=== PATIENT | female | born 1975 | race Caucasian/White ===

== ENCOUNTER 2017-04-24 11:05 | Day surgery (SDC) | payer BC, OTHER ==
[2017-04-19 12:48] VITALS: BMI 36.6
[~2017-04-24 11:05] MED LIST: oxyCODONE HCL 10 MG SUSTAINED ACTING TABLET PO ONE
[2017-04-24] MEDS ORDERED: LIDOCAINE 1%/EPI 1:100000 (20 ML MULTI DOSE VIAL) ONE (11:34)
[2017-04-24] MEDS ORDERED: methylPREDNISolone ACET (DEPO) 40 MG/1 ML VIAL ONE (11:34)
[2017-04-24] MEDS ORDERED: THROMBIN (BOVINE) 5,000 UNIT VIAL TP ONE (11:34)
[2017-04-24] MEDS ORDERED: DEXAMETHASONE SOD PHOSPHATE/PF 10 MG/ML SDV ONE (12:11)
[2017-04-24] MEDS ORDERED: MIDAZOLAM HCL 2 MG/2 ML SINGLE DOSE VIAL ONE (12:11)
[2017-04-24] MEDS ORDERED: BUPIVACAINE HCL/PF (5 MG/ML) 30 ML VIAL IJ ONE (12:12)
--- NOTE | 2017-04-24 12:53 | HP ---
History & Physical Update - History History: No Change - Physical Physical: No Change - Assessment Assessment: No Change - Plan Plan: No Change
[2017-04-24] MEDS ORDERED: DEXAMETHASONE SOD PHOSPHATE 4 MG/1 ML VIAL ONE (13:15)
[2017-04-24] MEDS ORDERED: ONDANSETRON 4 MG/2 ML VIAL ONE (13:15)
[2017-04-24] MEDS ORDERED: ceFAZolin SODIUM 1 GM VIAL ONE (13:15)
[2017-04-24] MEDS ORDERED: oxyCODONE HCL 5 MG TABLET PO PRN (14:20)
[2017-04-24] MEDS ORDERED: ONDANSETRON 4 MG/2 ML VIAL IVPUSH PRN (14:20)
[2017-04-24] MEDS ORDERED: LACTATED RINGERS SOLUTION 1,000 ML IV SCH (14:30)
[2017-04-24] MEDS ORDERED: LIDOCAINE HCL 1%, 10 MG/ML (20ML VIAL) ONE (14:32)
--- NOTE | 2017-04-24 15:00 | OP ---
Operative Note - Note: Operative Date: 04/24/17 Pre-Operative Diagnosis: lumbar stensis, herniated disc Operation: Laminectomy of L5-S1 with micordisectomy Surgeon: Rico Christianson Textile Engraver: Marisol Yu Anesthesiologist/TYPISTS SUPERVISOR: Sarah Alvarez Anesthesia: Spinal Specimens Removed: L5-S1 disc Estimated Blood Loss (mls): 20 Fluid Volume Replaced (mls): 1,000 Operative Report Dictated: Yes
--- NOTE | 2017-04-24 15:02 | SURG ---
Surgery Mill Attendant Note Mill Attendant: Marisol Yu PA-C Date of Service: 04/24/17 Diagnosis: spinal stenosis, herniated disc Procedure: laminectomy of L5-S1 with microdisectomyu I was present for the entirety of the operative procedure. For further detail, please refer to operative report. Visit type - Case Type Case Type: Scheduled Admission - Emergency Emergency Visit: No - New patient This patient is new to me today: Yes Date on this admission: 04/24/17
[2017-04-24 16:22] VITALS: PULSE 84; TEMP 98.4
[2017-04-24] MEDS ORDERED: oxyCODONE HCL 5 MG TABLET ONE (16:48)
[2017-04-24 17:44] VITALS: BP 98/52
--- NOTE | 2017-04-25 07:35 | OP ---
DATE OF OPERATION: 04/25/2017 PREOPERATIVE DIAGNOSIS: Spinal stenosis, L5-S1 POSTOPERATIVE DIAGNOSIS: Spinal stenosis, L5-S1. PROCEDURE PERFORMED: Laminectomy, L5-S1. SURGEON: Rico Christianson MD LIME KILN AND RECAUSTICIZING OPERATOR: SEVERO Borjas ESTIMATED BLOOD LOSS: 50 mL. INTRAVENOUS FLUIDS: Per Anesthesia. COMPLICATIONS: There were none. ANESTHESIA: Spinal with a TLIP block. INDICATIONS FOR SURGERY: The patient is a 42-year-old female who has been suffering from pain from her back down his legs. X-rays and MRI were completed, which noted that she had spinal stenosis at L5-S1 secondary to a herniated disc. She had gone through an exhaustive course of treatment for this which included medications, physical therapy, as well as injections. Unfortunately, her pain continued to persist despite all this. At this point, risks, benefits, and alternatives were discussed, and the patient consented to surgery. OPERATIVE NOTE: Patient was brought to the operating room by the anesthesia staff. After appropriate patient identification was performed and spinal anesthesia was given, appropriate anesthetic lines were placed, a TLIP block was also given. The patient was able to position herself prone onto the Grant frame with all areas of bony prominences well-padded at this time. Two needles were placed into the back to valeriano off the L5-S1 level. An x-ray was taken to confirm the needles track. The needle was removed, and 10 mL of lidocaine with epinephrine was injected into her back at this time. Her back was prepped and draped in a sterile manner. At this point, a time-out was completed. An incision was made from the top of L5 down to the bottom of S1. Dissection was carried down to the fascia. Fascia was split open at this time. An appropriate retractor was then placed, and a spinal needle was placed onto the L5 lamina to valeriano off the L5-S1 level. An x-ray was taken to confirm this was correct. The needle was removed, and the microscope was brought in. At this point, the interspinous ligament at L5-S1 was removed. Portions of the L5 and S1 spinous processes were removed. Portions of the lamina were removed. The segment was removed. A complete decompression was performed such that the S1 nerve root was free. At this point, the nerve root was mobilized medially, and the disc herniation was noted. It was removed at this time. By the end of the procedure, the S1 nerve root appeared to be well decompressed. All bleedings were controlled at this time. Steroids were placed over the nerve root. Floseal was placed over that. The fascia was closed with a No. 1 Vicryl suture. The subcutaneous tissues were closed with 2-0 Vicryl suture. Skin was closed with 3-0 Monocryl suture. Dermabond was applied. Steri-Strips were applied, and sterile dressings applied. Patient was placed supine on the OR bed and brought to the PACU in stable condition. Eleanor BILLS/[id number] MTDD
--- NOTE | 2017-04-27 13:12 | PATH ---
Surgical Pathology Report Patient Name: MARK GASPAR [facility]. Rec. #: [id number] /Age/Gender: 1975 (Age: 42) / F Account: [id number] Location: COUNTS INCLUDE 234 BEDS AT THE [facility] AM[facility]UL[facility] Taken: 04/24/2017 Received: 04/24/2017 Reported: 04/27/2017 Physicians: Rico Christianson M.D. Specimen(s) Received L5-S1 DISCS Clinical History Spinal stenosis Final Diagnosis L5-S1 DISC, LAMINECTOMY: CARTILAGE WITH DEGENERATIVE CHANGES. Electronically Signed Princess Royal M.D. Gross Description Received in formalin labeled "L5-S1 disc," is a 2.3 x 2.1 x 0.3 cm aggregate of powell fragments of fibrocartilaginous tissue. The specimen is entirely submitted in one cassette. 04/25/201704/25/2017
== END 2017-04-24 17:40 | disposition home or self-care (01) ==
LOC: FASU 11:05
PROVIDERS: ATTEND Orthopaedic Surgery Orthopaedic Surgery of the Spine
PROC: 01NB0ZZ Release Lumbar Nerve, Open Approach (ICD-10-PCS; principal; 2017-04-24 13:39)
DX: M48.07 Spinal stenosis, lumbosacral region (principal)
CPT/HCPCS: 84703; 88304-TC; 94760

== ENCOUNTER 2017-05-23 01:24 | Inpatient (IN) | payer BC ==
--- NOTE | 2017-05-23 01:56 | PDOC ---
History of Present Illness - General Stated Complaint: HEADACHE Time Seen by Provider: 05/23/17 01:49 - History of Present Illness Initial Comments: 05/23/17 01:58 42 yo F with L5-S1 Laminectomy ( 04/21/17) who presents with RUST. Patient reports acute onset RUST this past Monday (05/19/17). RUST initially post with radiation to front of head. RUST now sharp, frontal, unremitting. States that RUST is dif. than previous migraines in past. Denies photophobia, phonophobia, aura. Endorses 4 episodes of non biliayr, non bloody emesis in last 24 hours. Also reports lower back pain and rapid swelling at previous incision site from laminectomy (05/21/17) .Denies saddle parasthesisa, urinary incontinence, ext. sensory change, weakness, F/C. Reports that she is scheduled to see Dr. Ernie Parisi at 11 AM ( 05/23/17) for f/u management of laminectomy. Pt. prescribed tramadol and perocet, but denies use. Denies CP, SOB, abdominal pain, urinary complaints, lightheadedness, weakness. Past History - Past Medical History Allergies/Adverse Reactions: Allergies Allergy/AdvReac Type Severity Reaction Status Date / Time latex Allergy Intermediate Hives Verified 05/23/17 01:58 Home Medications: Ambulatory Orders Oxycodone HCl/Acetaminophen [Percocet 5-325 mg Tablet] 1 tab PO Q6H PRN #20 tablet MDD 4 04/24/17 traMADol HCL [Ultram] 50 mg PO Q6H #30 tablet MDD 4 04/24/17 Anemia: No Asthma: No Cancer: No Cardiac Disorders: No CVA: No COPD: No CHF: No Dementia: No Diabetes: No GI Disorders: No Disorders: No HTN: No Hypercholesterolemia: No Liver Disease: No Seizures: No Thyroid Disease: No - Surgical History Abdominal Surgery: No Appendectomy: No Cardiac Surgery: No Cholecystectomy: No Lung Surgery: No Neurologic Surgery: No Orthopedic Surgery: No - Suicide/Smoking/Psychosocial Hx Smoking History: Never smoked Have you smoked in the past 12 months: No Hx Alcohol Use: No Drug/Substance Use Hx: No Substance Use Type: None Hx Substance Use Treatment: No Review of Systems - Review of Systems Comments:: 05/23/17 01:54 GENERAL/CONSTITUTIONAL: No fever or chills. No weakness. HEAD, EYES, EARS, NOSE AND THROAT: No change in vision. No ear pain or discharge. No sore throat.- CARDIOVASCULAR: No chest pain or shortness of breath RESPIRATORY: No cough, wheezing, or hemoptysis. GASTROINTESTINAL: No nausea, vomiting, diarrhea or constipation. GENITOURINARY: No dysuria, frequency, or change in urination. MUSCULOSKELETAL: No joint or muscle swelling or pain. No neck or back pain. SKIN: No rash NEUROLOGIC: No headache, vertigo, loss of consciousness, or change in strength/ sensation. ENDOCRINE: No increased thirst. No abnormal weight change HEMATOLOGIC/LYMPHATIC: No anemia, easy bleeding, or history of blood clots. ALLERGIC/IMMUNOLOGIC: No hives or skin allergy. *Physical Exam - Physical Exam Comments: 05/23/17 01:56 GENERAL: Awake, alert, and fully oriented, in no acute distress HEAD: No signs of trauma, normocephalic, atraumatic EYES: PERRLA, EOMI, sclera anicteric, conjunctiva clear ENT: Hearing grossly normal, nares patent, oropharynx clear without exudates. Moist mucosa NECK: Normal ROM, supple, no lymphadenopathy, JVD, or masses LUNGS: No distress, speaks full sentences, clear to auscultation bilaterally HEART: Regular rate and rhythm, normal S1 and S2, no murmurs, rubs or gallops, peripheral pulses normal and equal bilaterally. EXTREMITIES : Normal inspection, Normal range of motion, no edema. No clubbing or cyanosis. NEUROLOGICAL: Cranial nerves II through XII grossly intact. Normal speech, normal gait, no focal sensorimotor deficits. Back: 6 x 6 cm firm, non fluctuant, induration. Absent erythema, ttp, or overlying skin changes. No active drainage. SKIN: Warm, Dry, normal turgor, no rashes or lesions noted ED Treatment Course - LABORATORY CBC & Chemistry Diagram: 05/24/17 07:24 05/24/17 07:24 Medical Decision Making - Medical Decision Making 05/23/17 02:47 42 yo F with L5-S1 Laminectomy ( 04/21/17) who presents with reports acute onset RUST this past Monday (05/19/17). RUST initially posterior with radiation to front of head. RUST now sharp, frontal, unremitting. States that RUST is dif. than previous migraines in past. Denies photophobia, phonophobia, aura. Endorses 4 episodes of non biliary, non bloody emesis in last 24 hours. Also reports lower back pain and rapid swelling at previous incision site from laminectomy () .Denies saddle parasthesisa, urinary incontinence, ext. sensory change, weakness, F/C. Reports that she is scheduled to see Dr. Rico Christianson at 11 AM ( 05/23/17) for f/u management of laminectomy. Pt. prescribed tramadol and perocet , but denies use. Denies CP, SOB, abdominal pain, urinary complaints, lightheadedness, weakness. Hemodynamically stable and physical exam noteable for 6 x 6 cm firm, non fluctuant, induration. Absent erythema, ttp, or overlying skin changes. No active drainage. Lower back induration most likely post op seroma vs. epidural asbsces. Although low suspicion, will also consider CSF leak given RUST, and back pain, in setting of recent surgery. ED Course: 05/23/17 02:53 CBC, CMP, ESR, CRP UA HCG Tylenol, NS, Reglan 05/23/17 03:[address] Gómez answering service [phone]. Cell phone out of service [phone] 05/23/17 03:46 WBC: 10.8, CRP 0.7 05/23/17 04:36 CT HEAD: No acute pathology. CT L-SPINE: 5.7 x 5.5 x 4.1 simple fluid collection L4-L5, which may extend into L5 laminectomy site. Postoperative seroma. Pt. signed out to Dr. Saha. *DC/Admit/Observation/Transfer Diagnosis at time of Disposition: Seroma after procedure - Discharge Dispostion Condition at time of disposition: Stable Admit: No - Referrals - Patient Instructions - Post Discharge Activity - Attestations Physician Attestion: 05/23/17 01:56 I attest to the information provided in this note.
[2017-05-23 02:07] VITALS: BMI 37.8
[2017-05-23] MEDS ORDERED: SODIUM CHLORIDE 1,000 ML IV STA (02:17)
[2017-05-23] MEDS ORDERED: morphine CARPU-JECT 4 MG/1 ML DISP.SYRIN IVPUSH ONE (02:17)
[2017-05-23] MEDS ORDERED: ONDANSETRON 4 MG/2 ML VIAL IVPUSH ONE (02:17)
[2017-05-23] MEDS ORDERED: METOCLOPRAMIDE HCL INJECTION 10 MG/2 ML VIAL IVPUSH ONE (02:34)
[2017-05-23] MEDS ORDERED: ACETAMINOPHEN 1000 MG/100 ML VIAL (NON FORMULARY) IVPB ONE (02:34)
[2017-05-23] MEDS ORDERED: METOCLOPRAMIDE HCL INJECTION 10 MG/2 ML VIAL ONE (02:41)
[2017-05-23] MEDS ORDERED: ACETAMINOPHEN INJECTION 100 ML IVPB ONE ×2 (02:41→13:11)
[2017-05-23 02:44] LABS: BASO % 0.9 % (0-2.0); EOS % 5.5 % (0-4.5); HEMATOCRIT 38.5 % (32.4-45.2); HEMOGLOBIN 13.1 GM/dL (10.7-15.3); LYMPH % 21.2 % (8-40); MCH 30.9 pg (25.7-33.7); MCHC 33.9 g/dl (32.0-36.0); MEAN PLT VOLUME 8.7 fl (7.5-11.1); MONO % 7.3 % (3.8-10.2); NEUT % 65.1 % (42.8-82.8); PLATELET COUNT 476 K/MM3 (134-434); RBC 4.23 M/mm3 (3.60-5.2); RDW 12.4 % (11.6-15.6); WHITE BLOOD COUNT 10.8 K/mm3 (4.0-10.0)
[2017-05-23 03:09] LABS: ALBUMIN 3.6 g/dl (3.4-5.0); ANION GAP 9 (8-16); BILIRUBIN,TOTAL 0.4 mg/dL (0.2-1.0); BLOOD UREA NITROGEN 14 mg/dL (7-18); CALCIUM 9.3 mg/dL (8.5-10.1); CHLORIDE 103 mmol/L (98-107); CO2 27 mmol/L (21-32); CREATININE 0.7 mg/dL (0.55-1.02); GLUCOSE,RANDOM 144 mg/dL (74-106); INR 1.02 (0.82-1.09); POTASSIUM 4.4 mmol/L (3.5-5.1); PROTHROMBIN TIME (PATIENT) 11.5 SEC (9.98-11.88); SGOT/AST 26 U/L (15-37); SGPT/ALT 61 U/L (12-78); SODIUM 139 mmol/L (136-145); TOT PROT 7.4 g/dl (6.4-8.2)
[2017-05-23 03:10] LABS: ALK PHOS 143 U/L (45-117)
--- NOTE | 2017-05-23 06:02 | PDOC ---
Attending Attestation - Resident Resident Name: Eron Padronson - ED Attending Attestation I have performed the following: I have examined & evaluated the patient, The case was reviewed & discussed with the resident, I agree w/resident's findings & plan, Exceptions are as noted - HPI HPI: 05/23/17 06:01 agree with resident note. AF, no infectious symptoms. lumbar area likely seroma vs. CSF leak. unlikely abscess. RUST likely stress, concern for CSF leak. pain contorl labsl imaging d/w surgeon. - Physicial Exam PE: 05/23/17 06:02 as aboe - Medical Decision Making 05/23/17 06:02 as above
[2017-05-23 08:36] LABS: URINE APPEARANCE CLEAR; URINE BILIRUBIN NEGATIVE (NEGATIVE); URINE BLOOD 1+ (NEGATIVE); URINE COLOR STRAW; URINE GLUCOSE (UA) NEGATIVE (NEGATIVE); URINE KETONE NEGATIVE (NEGATIVE); URINE LEUK ESTERASE TRACE (NEGATIVE); URINE NITRITE NEGATIVE (NEGATIVE); URINE PROTEIN NEGATIVE (NEGATIVE); URINE UROBILINOGEN NEGATIVE mg/dL (0.2-1.0)
[2017-05-23 08:46] LABS: EPI CELLS FEW /HPF (FEW)
[2017-05-23] MEDS ORDERED: ONDANSETRON 4 MG/2 ML VIAL IVPUSH PRN ×2 (09:59→15:28)
[2017-05-23] MEDS ORDERED: morphine CARPU-JECT 2 MG/1 ML DISP.SYRIN IVPUSH PRN (09:59)
--- NOTE | 2017-05-23 09:59 | HP ---
CHIEF COMPLAINT: Headache, neck pain Surgeon: Dr. Juan F Cancino HISTORY OF PRESENT ILLNESS: Review of surgical chart: 42 year-old female with a PMH significant for degenerative disc disease underwent L5S1 laminectomies on April 24, 2017 at [facility] with Dr. Rico Christianson. This surgery was performed as part of their Awake Spinal Surgery Protocol. Surgery was largely uneventful by report , however, there was a possible durotomy during the procedure. The patient made a very good recovery after the surgery and had good resolution of her presenting symptoms. Last Monday, the patient began to note swelling at her incision site and severe headaches with nausea and vomiting. These symptoms did not respond to conservative management efforts. After discussions with Dr. Christianson, patient presented to the [facility] ER for further evaluation and potential revision surgery. Inspection of her back in the ED showed a very well-healed lumbar incision which crossed the rostral aspect of the lumbar tattoo. The re-approximation of her tattoo was excellent. The wound was not warm or draining, however, it was clearly distended with fluid. Patient was neurologically nonfocal but complainws of severe headaches and was clearly in discomfort. She had not eaten all day due to severe nausea. 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 Recent Travel: No PAST MEDICAL HISTORY: Degenerative disc disease PAST SURGICAL HISTORY: L5-S1 laminectomy (04/24/17, [facility]) Social History: Smoking: no Alcohol: no Drugs: no Family History: non-contributory Allergies latex Allergy (Intermediate, Verified 05/23/17 01:58) Hives HOME MEDICATIONS: Home Medications Medication Instructions Recorded Oxycodone HCl/Acetaminophen 1 tab PO Q6H PRN #20 tablet MDD 4 04/24/17 [Percocet 5-325 mg Tablet] traMADol HCL [Ultram] 50 mg PO Q6H #30 tablet MDD 4 04/24/17 REVIEW OF SYSTEMS CONSTITUTIONAL: Absent: fever, chills, diaphoresis, generalized weakness, malaise, loss of appetite, weight change HEENT: Absent: rhinorrhea, nasal congestion, throat pain, throat swelling, difficulty swallowing, mouth swelling, ear pain, eye pain, visual changes CARDIOVASCULAR: Absent: chest pain, syncope, palpitations, irregular heart rate, lightheadedness , peripheral edema RESPIRATORY: Absent: cough, shortness of breath, dyspnea with exertion, orthopnea, wheezing, stridor, hemoptysis GASTROINTESTINAL: Absent: abdominal pain, abdominal distension, nausea, vomiting, diarrhea, constipation, melena, hematochezia GENITOURINARY: Absent: dysuria, frequency, urgency, hesitancy, hematuria, flank pain, genital pain MUSCULOSKELETAL: Absent: myalgia, arthralgia, joint swelling, back pain, neck pain SKIN: Absent: rash, itching, pallor HEMATOLOGIC/IMMUNOLOGIC: Absent: easy bleeding, easy bruising, lymphadenopathy, frequent infections ENDOCRINE: Absent: unexplained weight gain, unexplained weight loss, heat intolerance, cold intolerance NEUROLOGIC: +headaches, neck pain Absent: headache, focal weakness or paresthesias, dizziness, unsteady gait, seizure, mental status changes, bladder or bowel incontinence PSYCHIATRIC: Absent: anxiety, depression, suicidal or homicidal ideation, hallucinations. PHYSICAL EXAMINATION Patient seen and examined post-op on [facility] floor. States neck pain is resolved but still with headache only moderately improved. Vital Signs - 24 hr 05/23/17 05/23/17 01:59 09:32 Temperature 98.4 F 98 F Pulse Rate 93 H Pulse Rate [ 88 Left Radial] Respiratory 18 18 Rate Blood Pressure 126/101 Blood Pressure 97/61 [Right Arm] O2 Sat by Pulse 97 97 Oximetry (%) GENERAL: Awake, alert, and fully oriented, in no acute distress. HEAD: Normal with no signs of trauma. EYES: Pupils equal, round and reactive to light, extraocular movements intact, sclera anicteric, conjunctiva clear. No lid lag. EARS, NOSE, THROAT: Ears normal, nares patent, oropharynx clear without exudates. Moist mucous membranes. NECK: Normal range of motion, supple without lymphadenopathy, JVD, or masses. LUNGS: Breath sounds equal, clear to auscultation bilaterally. No wheezes, and no crackles. No accessory muscle use. HEART: Regular rate and rhythm, normal S1 and S2 without murmur, rub or gallop. ABDOMEN: Soft, nontender, not distended, normoactive bowel sounds, no guarding, no rebound, no masses. No hepatomegaly or splenomegaly. MUSCULOSKELETAL: Normal range of motion at all joints. No bony deformities or tenderness. No CVA tenderness. LUMBOSACRAL: Surgical dressing c/d/i; surrounding skin is warm to touch, no fluctuance, no erythema, no edema UPPER EXTREMITIES: 2+ pulses, warm, well-perfused. No cyanosis. No clubbing. No peripheral edema. LOWER EXTREMITIES: 2+ pulses, warm, well-perfused. No calf tenderness. No peripheral edema. NEUROLOGICAL: Cranial nerves II-XII intact. Normal speech. Laboratory Results - last 24 hr 05/23/17 05/23/17 05/23/17 02:30 02:30 02:30 WBC 10.8 H RBC 4.23 Hgb 13.1 D Hct 38.5 D MCV 91.0 MCH 30.9 MCHC 33.9 RDW 12.4 D Plt Count 476 H D MPV 8.7 Neutrophils % 65.1 Lymphocytes % 21.2 D Monocytes % 7.3 Eosinophils % 5.5 H D Basophils % 0.9 ESR 18 PT with INR INR Sodium Potassium Chloride Carbon Dioxide Anion Gap BUN Creatinine Creat Clearance w eGFR Random Glucose Calcium Total Bilirubin AST ALT Alkaline Phosphatase C-Reactive Protein 0.7 H Total Protein Albumin Serum , Qual Urine Color Urine Appearance Urine pH Ur Specific [place] Urine Protein Urine Glucose (UA) Urine Ketones Urine Blood Urine Nitrite Urine Bilirubin Urine Urobilinogen Ur Leukocyte Esterase Urine WBC (Auto) Urine RBC (Auto) Ur Epithelial Cells Urine HCG, Qual 05/23/17 05/23/17 05/23/17 02:30 02:30 02:30 WBC RBC Hgb Hct MCV MCH MCHC RDW Plt Count MPV Neutrophils % Lymphocytes % Monocytes % Eosinophils % Basophils % ESR PT with INR 11.50 INR 1.02 Sodium 139 Potassium 4.4 Chloride 103 Carbon Dioxide 27 Anion Gap 9 BUN 14 Creatinine 0.7 Creat Clearance w eGFR > 60 Random Glucose 144 H Calcium 9.3 Total Bilirubin 0.4 AST 26 ALT 61 Alkaline Phosphatase 143 H C-Reactive Protein Total Protein 7.4 Albumin 3.6 Serum , Qual Negative Urine Color Urine Appearance Urine pH Ur Specific [place] Urine Protein Urine Glucose (UA) Urine Ketones Urine Blood Urine Nitrite Urine Bilirubin Urine Urobilinogen Ur Leukocyte Esterase Urine WBC (Auto) Urine RBC (Auto) Ur Epithelial Cells Urine HCG, Qual 05/23/17 05/23/17 04:46 08:20 WBC RBC Hgb Hct MCV MCH MCHC RDW Plt Count MPV Neutrophils % Lymphocytes % Monocytes % Eosinophils % Basophils % ESR PT with INR INR Sodium Potassium Chloride Carbon Dioxide Anion Gap BUN Creatinine Creat Clearance w eGFR Random Glucose Calcium Total Bilirubin AST ALT Alkaline Phosphatase C-Reactive Protein Total Protein Albumin Serum , Qual Urine Color Straw Urine Appearance Clear Urine pH 6.0 Ur Specific [place] 1.058 H Urine Protein Negative Urine Glucose (UA) Negative Urine Ketones Negative Urine Blood 1+ H Urine Nitrite Negative Urine Bilirubin Negative Urine Urobilinogen Negative Ur Leukocyte Esterase Trace Urine WBC (Auto) 1 Urine RBC (Auto) 2 Ur Epithelial Cells Few Urine HCG, Qual Negative ASSESSMENT/PLAN 42 year old woman with a PMH significant for degenerative disc disease s/p L5- S1 laminectomy on 04/24/17. Surgical course complicated by possible durotomy. Patient is now s/p repair of durotomy. Pseudomeningocele --s/p repair of durotomy with muscle patch/duraseal --perioperative antibiotics per surgery --pain management per surgery DVT prophylaxis: subq heparin Physical therapy Dispo: continues to require inpatient care. Full code. Visit type - Emergency Visit Emergency Visit: Yes ED Registration Date: 05/23/17 Care time: The patient presented to the Emergency Department on the above date and was hospitalized for further evaluation of their emergent condition. - New Patient This patient is new to me today: Yes Date on this admission: 05/24/17 - Critical Care Critical Care patient: No Hospitalist Screening - Colonoscopy Questionnaire Colonoscopy Questionnaire: Colonoscopy Questionnaire - Patient: 50 - 75 years old and never had a screening colonoscopy: No History of colon or rectal polyps, or CA: No History of IBD, Crohn's disease or UC: No History of abdominal radiation therapy as a child: No - Relative: 1 with colon or rectal CA, or polyps at age 60 or younger: No Colon or rectal CA diagnosed at age 45 or younger: No Multiple relatives with colon or rectal CA: No - Outcome: Screening Result: Negative Screen
[2017-05-23] MEDS ORDERED: MORPHINE SULFATE 10 MG/1 ML *VIAL ONE (10:00)
[2017-05-23] MEDS ORDERED: morphine SULFATE 4 MG/ML VIAL IVPUSH PRN (11:28)
[2017-05-23] MEDS ORDERED: VANCOMYCIN 1,000 MG VIAL (RESTRICTED TO ID ONLY) ONE (12:20)
[2017-05-23] MEDS ORDERED: LIDOCAINE 1%/EPI 1:100000 (20 ML MULTI DOSE VIAL) ONE (12:20)
[2017-05-23] MEDS ORDERED: THROMBIN (BOVINE) 20,000 UNIT VIAL TP ONE (12:20)
[2017-05-23] MEDS ORDERED: GENTAMICIN SO4 80 MG/2 ML VIAL ONE (12:20)
[2017-05-23] MEDS ORDERED: ONDANSETRON 4 MG/2 ML VIAL ONE ×2 (12:59→16:01)
[2017-05-23] MEDS ORDERED: LIDOCAINE HCL/PF 2% SDV 5ML VIAL ONE (12:59)
[2017-05-23] MEDS ORDERED: DEXAMETHASONE SOD PHOSPHATE 4 MG/1 ML VIAL ONE (12:59)
[2017-05-23] MEDS ORDERED: PROPOFOL 20 ML ONE ×2 (13:00)
[2017-05-23] MEDS ORDERED: fentaNYL CITRATE 250 MCG/5 ML VIAL ONE (13:00)
[2017-05-23] MEDS ORDERED: ROCURONIUM BROMIDE 50 MG/5 ML VIAL ONE (13:00)
[2017-05-23] MEDS ORDERED: MIDAZOLAM HCL 2 MG/2 ML SINGLE DOSE VIAL ONE ×2 (13:00)
[2017-05-23] MEDS ORDERED: SCOPOLAMINE HYDROBROMIDE 1 PATCH PATCH.TD72 ONE (13:10)
[2017-05-23] MEDS ORDERED: ceFAZolin SODIUM 1 GM VIAL IVPB ONE ×3 (13:40→13:43)
[2017-05-23] MEDS ORDERED: LIDOCAINE 1%/EPI 1:100000 (50 ML MULTI DOSE VIAL) INF ONE (13:44)
[2017-05-23] MEDS ORDERED: VANCOMYCIN 1,000 MG VIAL (RESTRICTED TO ID ONLY) IVPB ONE ×2 (13:47→13:48)
[2017-05-23] MEDS ORDERED: ceFAZolin SODIUM 1 GM VIAL ONE (14:04)
[2017-05-23] MEDS ORDERED: LIDOCAINE HCL 4% TOPICAL SOLN (50 ML/BOTTLE) ONE (14:04)
[2017-05-23] MEDS ORDERED: NEOSTIGMINE METHYLSULFATE 0.5 MG/ML - 10 ML MDV ONE (14:04)
[2017-05-23] MEDS ORDERED: GLYCOPYRROLATE 0.2 MG/1 ML VIAL ONE (14:04)
--- NOTE | 2017-05-23 14:15 | EKG ---
Test Reason : Blood Pressure : / mmHG Vent. Rate : 082 BPM Atrial Rate : 082 BPM P-R Int : 172 ms QRS Dur : 082 ms QT Int : 400 ms P-R-T Axes : 059 038 037 degrees QTc Int : 467 ms NORMAL SINUS RHYTHM NORMAL ECG NO PREVIOUS ECGS AVAILABLE Confirmed by MD Trip, Mazin ([id number]) on 05/23/2017 2:15:31 PM Referred By: Confirmed By:Mazin Dominique MD
[2017-05-23] MEDS ORDERED: BUPIVACAINE HCL/PF 0.5% (5MG/ML) 10 ML VIAL IJ ONE (14:51)
--- NOTE | 2017-05-23 15:21 | OP ---
Operative Note - Note: Operative Date: 05/23/17 Pre-Operative Diagnosis: pseudomeningocele Operation: wound irrigation/washout/debriement. Repair of durotomy with muscle patch/duraseal Surgeon: Juan F Cancino Log Handler: Marisol Yu Anesthesiologist/MOLD LOFT WORKER: Terry Sanchez Anesthesia: General Estimated Blood Loss (mls): 30 Fluid Volume Replaced (mls): 500 Operative Report Dictated: Yes
[2017-05-23] MEDS ORDERED: PROMETHAZINE HCL 25 MG/1 ML VIAL IVPUSH PRN (15:23)
[2017-05-23] MEDS ORDERED: oxyCODONE HCL 5 MG TABLET PO PRN ×2 (15:28)
[2017-05-23] MEDS ORDERED: LACTATED RINGERS SOLUTION 1,000 ML IV SCH (15:30)
[2017-05-23] MEDS ORDERED: ACETAMINOPHEN 325 MG TABLET (FP) PO PRN (15:35)
--- NOTE | 2017-05-23 15:40 | SURG ---
Surgery Round Up Ring Hand Note Round Up Ring Hand: Marisol Yu PA-C Date of Service: 05/23/17 Diagnosis: pseudomeningocele Procedure: wound irrigation/washout/debriement. Repair of durotomy with muscle patch/ duraseal I was present for the entirety of the operative procedure. For further detail, please refer to operative report. Visit type - Case Type Case Type: ED Admission - Emergency Emergency Visit: Yes ED Registration Date: 05/23/17 Care time: The patient presented to the Emergency Department on the above date and was hospitalized for further evaluation of their emergent condition. - New patient This patient is new to me today: Yes Date on this admission: 05/23/17
[2017-05-23] MEDS ORDERED: LACTATED RINGERS SOLUTION 1,000 ML/1,000 ML INFUS.BAG IV SCH (15:45)
[2017-05-23] MEDS: ONDANSETRON 4 MG/2 ML VIAL IVPUSH PRN (16:06)
--- NOTE | 2017-05-23 16:09 | CONSULT ---
Consult - text type - Consultation Consultation Note: NEUROSURGERY CONSULTATION Angelina Lorenzo is a 42 year old Latin female who underwent L5S1 laminectomies on April 24, 2017 at [facility] with Dr. Rico Christianson. This surgery was performed as part of their Awake Spinal Surgery Protocol. Surgery was largely uneventful by report, however, there was a possible durotomy during the procedure. The patient made a very good recovery after the surgery and had good resolution of her presenting symptoms. Last Monday, the patient began to note swelling at her incision site and severe headaches with nausea and vomiting. These symptoms did not respond to conservative management efforts and the patient presented to the [facility] ER today in lieu of her scheduled followup appointment with Dr. Christianson. Inspection of her back shows a very well healed Lumbar incision which crosses the rostral aspect of her Lumbar tattoo. The re-approximation of her tattoo is excellent. The wound is not warm or draining, however, it is clearly distended with fluid. She presented to the [facility] ER for further evaluation and potential revision surgery after discussions with Dr. Christianson. She is Neurologically nonfocal but complains of severe headaches and is clearly in discomfort. She has not eaten all day due to severe Nausea. 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 I had a long discussion with the patient regarding the risks, benefits and alternatives to exploration of the wound, reoperative exposure, and repair of the durotomy with bilateral soft tissue advancement flaps. I explained that the risks included, but were not limited to: , coma, paralysis, bleeding, infection, CSF leakage possibly requiring spinal drainage or additional surgery and the need for additional spine surgery (decompression versus fusion). All questions were answered. I offered her the option of seeking another opinion or another surgeon. Informed consent was obtained. The patient verbalized a sound understanding of this information and asked intelligent questions which suggested that she was cognizant of the information that I provided. She asked that I proceed with the described surgical repair.
[2017-05-23] MEDS ORDERED: ACETAMINOPHEN 325 MG TABLET (FP) PO SCH (18:00)
[2017-05-23] MEDS: MORPHINE SULFATE 10 MG/1 ML *VIAL IVPUSH PRN (20:05)
[2017-05-23] MEDS: CEFAZOLIN 1 GM PUSH 1 GM/10 ML DISP.SYRIN IVPUSH SCH (20:31)
[2017-05-23] MEDS: HEPARIN NA (PORCINE) 5,000 UNITS/ML 1ML VIAL SQ SCH (22:09)
[2017-05-24] MEDS: MORPHINE SULFATE 10 MG/1 ML *VIAL IVPUSH PRN ×2 (00:02→06:44)
[2017-05-24] MEDS: ONDANSETRON 4 MG/2 ML VIAL IVPUSH PRN (00:06)
[2017-05-24] MEDS: CEFAZOLIN 1 GM PUSH 1 GM/10 ML DISP.SYRIN IVPUSH SCH (01:22)
[2017-05-24] MEDS: ACETAMINOPHEN/CAFFEINE/BUTALBITAL 1 TAB PO PRN ×3 (03:40→22:28)
[2017-05-24] MEDS: HEPARIN NA (PORCINE) 5,000 UNITS/ML 1ML VIAL SQ SCH ×3 (06:44→22:31)
--- NOTE | 2017-05-24 07:37 | PN ---
Progress Note (short form) - Note Progress Note: Pt with headache this am. No further neck pain. Pain at the incision site without pain to the legs. Some nausea Vital Signs Period Temp Pulse Resp BP Sys/Viveros Pulse Ox Last 24 Hr 98 F-98.7 F 84-108 12-20 95-114/49-68 95-99 GEN: Alert, appears somewhat unfomfortable Back: Dressing c/d/i. No fullness around the incision. LE: 5/5 dorsi/plantar flexion cbc/chem pending A/P: 42 yo female s/p wound washout/debridment, repair of durotomy, POD#1 Continue antiemetics as needed for nausea, clears and advanace diet as tolerated May give fiorocet as needed for headache, last dose this am around 4 Heparin SQ for DVT ppx/SCDs D/w Dr. Alex
[2017-05-24 07:59] LABS: BASO % 0.2 % (0-2.0); EOS % 0.3 % (0-4.5); HEMATOCRIT 34.4 % (32.4-45.2); HEMOGLOBIN 11.5 GM/dL (10.7-15.3); LYMPH % 11.7 % (8-40); MCH 30.4 pg (25.7-33.7); MCHC 33.3 g/dl (32.0-36.0); MEAN CELL VOLUME 91.4 fl (80-96); MEAN PLT VOLUME 8.7 fl (7.5-11.1); MONO % 7.5 % (3.8-10.2); NEUT % 80.3 % (42.8-82.8); PLATELET COUNT 412 K/MM3 (134-434); RBC 3.76 M/mm3 (3.60-5.2); RDW 12.6 % (11.6-15.6); WHITE BLOOD COUNT 15.5 K/mm3 (4.0-10.0)
[2017-05-24 08:37] LABS: CHLORIDE 103 mmol/L (98-107); SODIUM 138 mmol/L (136-145)
[2017-05-24 08:44] LABS: ANION GAP 9 (8-16); BLOOD UREA NITROGEN 11 mg/dL (7-18); CALCIUM 8.4 mg/dL (8.5-10.1); CO2 26 mmol/L (21-32); CREATININE 0.7 mg/dL (0.55-1.02); GLUCOSE,RANDOM 114 mg/dL (74-106)
[2017-05-24] MEDS ORDERED: diphenhydrAMINE HCL 25 MG CAPSULE (FP) PO ONE (10:40)
--- NOTE | 2017-05-24 11:01 | PN ---
Physical Exam: SUBJECTIVE: Patient seen and examined at bedside. Complaining of headache, mildly improved compared to prior to surgery. Also with incisional pain, nausea , and itching. Became dizzy getting up to go to the bathroom. Patient does not want any more narcotics as they make her nauseous. Told patient her itchiness is also likely due to morphine. OBJECTIVE: Vital Signs Period Temp Pulse Resp BP Sys/Viveros Pulse Ox Last 24 Hr 98.4 F-98.7 F 86-108 12-20 95-114/49-68 95-99 GENERAL: The patient is awake, alert, and fully oriented, in no acute distress. LUNGS: Breath sounds equal, clear to auscultation bilaterally, no wheezes, no crackles, no accessory muscle use. HEART: Regular rate and rhythm, S1, S2 without murmur, rub or gallop. ABDOMEN: Soft, nontender, nondistended, normoactive bowel sounds LUMBAR SPINE: Surgical dressing c/d/i; surrounding skin is warm but not erythema and no edema; no fluctuance EXTREMITIES: 2+ pulses, warm, well-perfused, no edema. NEUROLOGICAL: Cranial nerves II through XII grossly intact. Normal speech, gait not observed. Laboratory Results - last 24 hr 05/24/17 05/24/17 07:24 07:24 WBC 15.5 H D RBC 3.76 Hgb 11.5 D Hct 34.4 MCV 91.4 MCH 30.4 MCHC 33.3 RDW 12.6 Plt Count 412 MPV 8.7 Neutrophils % 80.3 D Lymphocytes % 11.7 D Monocytes % 7.5 Eosinophils % 0.3 D Basophils % 0.2 Sodium 138 Potassium 4.0 Chloride 103 Carbon Dioxide 26 Anion Gap 9 BUN 11 Creatinine 0.7 Random Glucose 114 H Calcium 8.4 L Current Medications Generic Name Dose Route Start Last Admin Trade Name Freq PRN Reason Stop Dose Admin Acetaminophen/Butalbital/Caffeine 1 tablet 05/24/17 11:47 Fioricet - PO Q4H PRN HEADACHE Heparin Sodium (Porcine) 5,000 unit 05/23/17 22:00 05/24/17 06:44 Heparin - SQ 5,000 unit TID IFEOMA Administration Dextrose/Sodium Chloride 1,000 mls @ 75 mls/hr 05/24/17 11:45 D5-1/2ns - IV ASDIR IFEOMA Ondansetron HCl 4 mg 05/23/17 15:28 Zofran Injection IVPUSH Q6H PRN NAUSEA AND/OR VOMITING Promethazine HCl 12.5 mg 05/23/17 15:23 Phenergan Injection - IVPUSH Q6H PRN NAUSEA-FOR RESCUE AFTER 15 MIN ASSESSMENT/PLAN 42 year old woman with a PMH significant for degenerative disc disease s/p L5- S1 laminectomy on 04/24/17. Surgical course complicated by possible durotomy. Patient is now s/p repair of durotomy, POD #1. Pseudomeningocele --s/p repair of durotomy with muscle patch/duraseal --perioperative antibiotics per surgery --opiods d/c'd as patient did not tolerate, nausea and itching --poor PO intake due to nausea, resume IV fluids --Fioricet/tylenol PRN --Zofran, phenergen PRN DVT prophylaxis: subq heparin Physical therapy Dispo: continues to require inpatient care. Full code. Visit type - Emergency Visit Emergency Visit: Yes ED Registration Date: 05/23/17 Care time: The patient presented to the Emergency Department on the above date and was hospitalized for further evaluation of their emergent condition. - New Patient This patient is new to me today: No - Critical Care Critical Care patient: No
[2017-05-24] MEDS ORDERED: ACETAMINOPHEN/CAFFEINE/BUTALBITAL 1 TAB PO PRN (11:47)
--- NOTE | 2017-05-24 13:57 | PN ---
Progress Note (short form) - Note Progress Note: Anesthesia postop note, POD#1 S/P Lumbar wound exploration and Dura tear repair. Pat see and examined. In bed with SCDs on. C/O headache , nausea in sitting or standing position. AAOx3. NAD.VSS. Neurologically grossly intact. Patient is waiting to discuss with the surgeon regarding her continued nausea and headache. No apparent post anesthesia related complications. Patient reassured.
[2017-05-24] MEDS: ACETAMINOPHEN 325 MG TABLET (FP) PO PRN (16:57)
[2017-05-24] MEDS: DEXTROSE 5%-0.45% SALINE 1,000 ML IV SCH (22:31)
[2017-05-25] MEDS: DEXTROSE 5%-0.45% SALINE 1,000 ML IV SCH ×2 (00:29→10:53)
[2017-05-25] MEDS: ACETAMINOPHEN 325 MG TABLET (FP) PO PRN (04:07)
[2017-05-25] MEDS: ACETAMINOPHEN/CAFFEINE/BUTALBITAL 1 TAB PO PRN ×4 (05:37→23:15)
[2017-05-25] MEDS: HEPARIN NA (PORCINE) 5,000 UNITS/ML 1ML VIAL SQ SCH ×3 (05:39→21:57)
--- NOTE | 2017-05-25 10:02 | PN ---
Progress Note (short form) - Note Progress Note: POD#2 pt with continued headache, no nausea or emesis today, tolerated a diet. C/o pain at incision site. States that she doesn't like taking oxycodone, will try ultram. Vital Signs Period Temp Pulse Resp BP Sys/Viveros Pulse Ox Last 24 Hr 99.4 F-99.7 F 89-90 20-22 104-126/65-76 GEN: lying in bed, NAD BAck: no fullness to wound. Dressing c/d/i. CBC, BMP 05/24/ 07:24 03//18 07:24 A/P: 42 yo female s/p wound exploration with washout/debridment and reapir of dural tear D/w Dr. Alex, will continue to treat headache with fiorocet as needed, MAR reviewed took tow tabs in past 24 hours continue diet as toelrated DVT ppx with heparin SQ Pt receiving IV hydration, may discontinue if tolerating a diet
[2017-05-25] MEDS: traMADol HCL 50 MG TABLET PO PRN ×3 (11:32→23:54)
--- NOTE | 2017-05-25 14:30 | PN ---
Progress Note (short form) - Note Progress Note: Patient doing reasonably well. Headaches persist, however neck pain and nausea have abated. Course of care discussed in detail PLAN -d/c IV Fluids (patient may drink fluids as tolerated) -Patient will have headaches for 1-2 weeks, can continue Fioricet and simplify activties -skin clip removal in 2 weeks in my office -Patient planning to return to work on June 05, which seems reasonable.
[2017-05-25] MEDS: DOCUSATE SODIUM 100 MG CAPSULE (FP) PO PRN ×2 (14:54→23:20)
--- NOTE | 2017-05-25 16:47 | PN ---
Progress Note (short form) - Note Progress Note: Subjective: The patient was seen and examined at the bedside, she has complaints of migraine for which she had taken fiorecet with good relief Current Medications Generic Name Dose Route Start Last Admin Trade Name Sonia PRN Reason Stop Dose Admin Acetaminophen 325 mg 05/24/17 16:39 05/25/17 04:07 Tylenol - PO 325 mg Q8H PRN Administration PAIN LEVEL 1-5 Acetaminophen/Butalbital/Caffeine 1 tablet 05/24/17 16:40 05/25/17 10:53 Fioricet - PO 1 tablet Q6H PRN Administration HEADACHE Docusate Sodium 100 mg 05/25/17 14:18 05/25/17 14:54 Colace - PO 100 mg Q8H PRN Administration CONSTIPATION Heparin Sodium (Porcine) 5,000 unit 05/23/17 22:00 05/25/17 14:09 Heparin - SQ 5,000 unit TID IFEOMA Administration Dextrose/Sodium Chloride 1,000 mls @ 75 mls/hr 05/24/17 11:45 05/25/17 10:53 D5-1/2ns - IV 75 mls/hr ASDIR IFEOMA Administration Ondansetron HCl 4 mg 05/23/17 15:28 Zofran Injection IVPUSH Q6H PRN NAUSEA AND/OR VOMITING Promethazine HCl 12.5 mg 05/23/17 15:23 Phenergan Injection - IVPUSH Q6H PRN NAUSEA-FOR RESCUE AFTER 15 MIN Tramadol HCl 50 mg 05/25/17 10:08 05/25/17 11:32 Ultram - PO 50 mg Q6H PRN Administration PAIN LEVEL 1-5 Objective: Vital Signs Period Temp Pulse Resp BP Sys/Viveros Pulse Ox Last 24 Hr 98.4 F-99.7 F 89-112 18-20 103-109/59-65 96 Physical Exam: General: NAD, A&Ox3 Lungs: CTA bilaterally Heart: RRR, S1S2 Abd: Soft, non-tender, non-distended. Normoactive bowel sounds Skin: Lower back dressing c/d/i Ext: Warm, well-perfused. 2+ DP/PT bilaterally CBCD WBC 15.5 K/mm3 (4.0-10.0) H D 05/24/17 07:24 RBC 3.76 M/mm3 (3.60-5.2) 05/24/17 07:24 Hgb 11.5 GM/dL (10.7-15.3) D 05/24/17 07:24 Hct 34.4 % (32.4-45.2) 05/24/17 07:24 MCV 91.4 fl (80-96) 05/24/17 07:24 MCHC 33.3 g/dl (32.0-36.0) 05/24/17 07:24 RDW 12.6 % (11.6-15.6) 05/24/17 07:24 Plt Count 412 K/MM3 (134-434) 05/24/17 07:24 MPV 8.7 fl (7.5-11.1) 05/24/17 07:24 CMP Sodium 138 mmol/L (136-145) 05/24/17 07:24 Potassium 4.0 mmol/L (3.5-5.1) 05/24/17 07:24 Chloride 103 mmol/L (98-107) 05/24/17 07:24 Carbon Dioxide 26 mmol/L (21-32) 05/24/17 07:24 Anion Gap 9 (8-16) 05/24/17 07:24 BUN 11 mg/dL (7-18) 05/24/17 07:24 Creatinine 0.7 mg/dL (0.55-1.02) 05/24/17 07:24 Creat Clearance w eGFR > 60 (>60) 05/23/17 02:30 Random Glucose 114 mg/dL (74-106) H 05/24/17 07:24 Calcium 8.4 mg/dL (8.5-10.1) L 05/24/17 07:24 Total Bilirubin 0.4 mg/dL (0.2-1.0) 05/23/17 02:30 AST 26 U/L (15-37) 05/23/17 02:30 ALT 61 U/L (12-78) 05/23/17 02:30 Alkaline Phosphatase 143 U/L (45-117) H 05/23/17 02:30 Total Protein 7.4 g/dl (6.4-8.2) 05/23/17 02:30 Albumin 3.6 g/dl (3.4-5.0) 05/23/17 02:30 Microbiology 05/23/17 04:46 Blood - Peripheral Venous Blood Culture - Preliminary NO GROWTH OBTAINED AFTER 24 HOURS, INCUBATION TO CONTINUE FOR 4 DAYS. Assessment: This is a 42 year old female with PMHx of degenerative disc disease s/p L5S1 laminectomy on 04/24/17 who presented to the ED with headache and lower back swelling and pain and was found to have a pseudomeningocele Plan: 1) Pseudomeningocele - S/p wound irrigation/washout/debridement, repain of durotomy with muscle patch /duraseal on 05/23/17 - Pain management with ultram - D/c IV fluids - Fioricet for headaches - Skin clip removal in [address] Hood - Appreciate neurosurgery consult 2) F/E/N: - Regular diet - Monitor electrolytes - Colace for constipation 3) Prophylaxis: - Heparin 5,000u sq tid 4) Dispo: - Requires continued inpatient care CODE STATUS: FULL CODE Visit type - Emergency Visit Emergency Visit: Yes ED Registration Date: 05/23/17 Care time: The patient presented to the Emergency Department on the above date and was hospitalized for further evaluation of their emergent condition. - New Patient This patient is new to me today: Yes Date on this admission: 05/25/17 - Critical Care Critical Care patient: No
[2017-05-26] MEDS: HEPARIN NA (PORCINE) 5,000 UNITS/ML 1ML VIAL SQ SCH ×3 (06:16→21:22)
[2017-05-26] MEDS: traMADol HCL 50 MG TABLET PO PRN ×3 (06:44→20:03)
[2017-05-26] MEDS: ACETAMINOPHEN/CAFFEINE/BUTALBITAL 1 TAB PO PRN ×3 (06:46→20:04)
[2017-05-26 08:50] LABS: BASO % 0.8 % (0-2.0); EOS % 4.5 % (0-4.5); HEMATOCRIT 35.3 % (32.4-45.2); HEMOGLOBIN 11.9 GM/dL (10.7-15.3); LYMPH % 19.1 % (8-40); MCH 30.7 pg (25.7-33.7); MCHC 33.8 g/dl (32.0-36.0); MEAN CELL VOLUME 90.9 fl (80-96); MEAN PLT VOLUME 8.5 fl (7.5-11.1); MONO % 11.1 % (3.8-10.2); NEUT % 64.5 % (42.8-82.8); PLATELET COUNT 389 K/MM3 (134-434); RBC 3.88 M/mm3 (3.60-5.2); RDW 12.4 % (11.6-15.6); WHITE BLOOD COUNT 12.2 K/mm3 (4.0-10.0)
[2017-05-26 09:14] LABS: ALBUMIN 3.1 g/dl (3.4-5.0); ALK PHOS 118 U/L (45-117); ANION GAP 7 (8-16); BILIRUBIN,TOTAL 0.8 mg/dL (0.2-1.0); BLOOD UREA NITROGEN 7 mg/dL (7-18); CALCIUM 8.7 mg/dL (8.5-10.1); CHLORIDE 101 mmol/L (98-107); CO2 30 mmol/L (21-32); CREATININE 0.7 mg/dL (0.55-1.02); GLUCOSE,RANDOM 102 mg/dL (74-106); POTASSIUM 3.7 mmol/L (3.5-5.1); SGOT/AST 31 U/L (15-37); SGPT/ALT 42 U/L (12-78); SODIUM 138 mmol/L (136-145); TOT PROT 6.5 g/dl (6.4-8.2)
[2017-05-26] MEDS ORDERED: diphenhydrAMINE HCL 25 MG CAPSULE (FP) PO ONE (10:00)
--- NOTE | 2017-05-26 10:17 | PN ---
Progress Note (short form) - Note Progress Note: Subjective: The patient was seen and examined at the bedside, she has complaints of itching on her nose after receiving ultram. She is also complaining of dizziness when she gets up and walks and headache Orthostatics ordered Current Medications Generic Name Dose Route Start Last Admin Trade Name Freq PRN Reason Stop Dose Admin Acetaminophen 325 mg 05/24/17 16:39 05/25/17 04:07 Tylenol - PO 325 mg Q8H PRN Administration PAIN LEVEL 1-5 Acetaminophen/Butalbital/Caffeine 1 tablet 05/24/17 16:40 05/26/17 06:46 Fioricet - PO 1 tablet Q6H PRN Administration HEADACHE Docusate Sodium 100 mg 05/25/17 14:18 05/25/17 23:20 Colace - PO 100 mg Q8H PRN Administration CONSTIPATION Heparin Sodium (Porcine) 5,000 unit 05/23/17 22:00 05/26/17 06:16 Heparin - SQ 5,000 unit TID IFEOMA Administration Dextrose/Sodium Chloride 1,000 mls @ 75 mls/hr 05/24/17 11:45 05/25/17 10:53 D5-1/2ns - IV 75 mls/hr ASDIR IFEOMA Administration Ondansetron HCl 4 mg 05/23/17 15:28 Zofran Injection IVPUSH Q6H PRN NAUSEA AND/OR VOMITING Promethazine HCl 12.5 mg 05/23/17 15:23 Phenergan Injection - IVPUSH Q6H PRN NAUSEA-FOR RESCUE AFTER 15 MIN Tramadol HCl 50 mg 05/25/17 10:08 05/26/17 06:44 Ultram - PO 50 mg Q6H PRN Administration PAIN LEVEL 1-5 Objective: Vital Signs Period Temp Pulse Resp BP Sys/Viveros Pulse Ox Last 24 Hr 98.7 F-99.7 F 82-109 18-20 100-105/56-59 96 Physical Exam: General: NAD, A&Ox3 Lungs: CTA bilaterally Heart: RRR, S1S2 Abd: Soft, non-tender, non-distended. Normoactive bowel sounds Skin: Lower back dressing c/d/i Ext: Warm, well-perfused. 2+ DP/PT bilaterally CBCD WBC 12.2 K/mm3 (4.0-10.0) H 05/26/17 08:30 RBC 3.88 M/mm3 (3.60-5.2) 05/26/17 08:30 Hgb 11.9 GM/dL (10.7-15.3) 05/26/17 08:30 Hct 35.3 % (32.4-45.2) 05/26/17 08:30 MCV 90.9 fl (80-96) 05/26/17 08:30 MCHC 33.8 g/dl (32.0-36.0) 05/26/17 08:30 RDW 12.4 % (11.6-15.6) 05/26/17 08:30 Plt Count 389 K/MM3 (134-434) 05/26/17 08:30 MPV 8.5 fl (7.5-11.1) 05/26/17 08:30 CMP Sodium 138 mmol/L (136-145) 05/26/17 08:30 Potassium 3.7 mmol/L (3.5-5.1) 05/26/17 08:30 Chloride 101 mmol/L (98-107) 05/26/17 08:30 Carbon Dioxide 30 mmol/L (21-32) 05/26/17 08:30 Anion Gap 7 (8-16) L 05/26/17 08:30 BUN 7 mg/dL (7-18) 05/26/17 08:30 Creatinine 0.7 mg/dL (0.55-1.02) 05/26/17 08:30 Creat Clearance w eGFR > 60 (>60) 05/26/17 08:30 Random Glucose 102 mg/dL (74-106) 05/26/17 08:30 Calcium 8.7 mg/dL (8.5-10.1) 05/26/17 08:30 Total Bilirubin 0.8 mg/dL (0.2-1.0) D 05/26/17 08:30 AST 31 U/L (15-37) 05/26/17 08:30 ALT 42 U/L (12-78) 05/26/17 08:30 Alkaline Phosphatase 118 U/L (45-117) H 05/26/17 08:30 Total Protein 6.5 g/dl (6.4-8.2) 05/26/17 08:30 Albumin 3.1 g/dl (3.4-5.0) L 05/26/17 08:30 Assessment: This is a 42 year old female with PMHx of degenerative disc disease s/p L5S1 laminectomy on 04/24/17 who presented to the ED with headache and lower back swelling and pain and was found to have a pseudomeningocele Plan: 1) Pseudomeningocele - S/p wound irrigation/washout/debridement, repain of durotomy with muscle patch /duraseal on 05/23/17 - Pain management with ultram - Fioricet for headaches - Skin clip removal in [address] Hood - Appreciate neurosurgery consult 2) Dizziness - May be 2/2 deconditioning from being on bed rest vs. migraine vs. orthostatics - F/u orthostatic vital signs 3) F/E/N: - Regular diet - Monitor electrolytes - Colace for constipation 4) Prophylaxis: - Heparin 5,000u sq tid 5) Dispo: - Requires continued inpatient care CODE STATUS: FULL CODE Visit type - Emergency Visit Emergency Visit: Yes ED Registration Date: 05/23/17 Care time: The patient presented to the Emergency Department on the above date and was hospitalized for further evaluation of their emergent condition. - New Patient This patient is new to me today: No - Critical Care Critical Care patient: No
[2017-05-26] MEDS: DOCUSATE SODIUM 100 MG CAPSULE (FP) PO PRN (11:19)
[2017-05-27] MEDS: ACETAMINOPHEN/CAFFEINE/BUTALBITAL 1 TAB PO PRN ×2 (01:15→08:17)
[2017-05-27] MEDS: traMADol HCL 50 MG TABLET PO PRN (01:16)
[2017-05-27 06:09] VITALS: BP 100/65; PULSE 80; TEMP 98.2
[2017-05-27] MEDS: HEPARIN NA (PORCINE) 5,000 UNITS/ML 1ML VIAL SQ SCH (06:26)
[2017-05-27] MEDS: DOCUSATE SODIUM 100 MG CAPSULE (FP) PO PRN (06:26)
[2017-05-27 07:59] LABS: BASO % 0.8 % (0-2.0); EOS % 6.5 % (0-4.5); HEMATOCRIT 35.4 % (32.4-45.2); HEMOGLOBIN 12.2 GM/dL (10.7-15.3); LYMPH % 23.7 % (8-40); MCH 31.5 pg (25.7-33.7); MCHC 34.6 g/dl (32.0-36.0); MEAN CELL VOLUME 91.3 fl (80-96); MEAN PLT VOLUME 8.6 fl (7.5-11.1); MONO % 9.1 % (3.8-10.2); NEUT % 59.9 % (42.8-82.8); PLATELET COUNT 444 K/MM3 (134-434); RBC 3.87 M/mm3 (3.60-5.2); RDW 12.6 % (11.6-15.6)
[2017-05-27 08:13] LABS: CHLORIDE 101 mmol/L (98-107); POTASSIUM 4.2 mmol/L (3.5-5.1); SODIUM 137 mmol/L (136-145)
[2017-05-27 08:41] LABS: ALBUMIN 2.9 g/dl (3.4-5.0); ALK PHOS 139 U/L (45-117); ANION GAP 12 (8-16); BILIRUBIN,TOTAL 0.7 mg/dL (0.2-1.0); BLOOD UREA NITROGEN 9 mg/dL (7-18); CALCIUM 8.9 mg/dL (8.5-10.1); CO2 24 mmol/L (21-32); CREATININE 0.6 mg/dL (0.55-1.02); GLUCOSE,RANDOM 91 mg/dL (74-106); SGOT/AST 52 U/L (15-37); SGPT/ALT 72 U/L (12-78); TOT PROT 6.5 g/dl (6.4-8.2)
--- NOTE | 2017-05-27 08:48 | DS ---
Physical Examination Vital Signs: Vital Signs Temperature 98.2 F 05/27/17 06:08 Pulse Rate 80 05/27/17 06:08 Respiratory Rate 20 05/27/17 06:08 Blood Pressure 100/65 05/27/17 06:08 O2 Sat by Pulse Oximetry (%) 97 05/26/17 21:00 Labs: CBC, BMP 05/27/17 06:00 Discharge Summary Reason For Visit: SEROMA AFTER PROCEDURE Current Active Problems Seroma after procedure (Acute) Condition: Stable - Instructions Diet, Activity, Other Instructions: Please return to the ED with new, persistent, or worsening symptoms. Please follow-up with providers as indicated. Referrals: Pranay Ross MD [Primary Care Provider] - 1 Week Juan F Cancino MD, [facility] [Staff Physician] - (Please follow-up with neurosurgery within 1 week. Your will need to have your skin clip removed in [address] Cancino. ) Disposition: VNS/HOME HEALTH CARE - Home Medications Comprehensive Discharge Medication List: Ambulatory Orders Oxycodone HCl/Acetaminophen [Percocet 5-325 mg Tablet] 1 tab PO Q6H PRN #20 tablet MDD 4 04/24/17 traMADol HCL [Ultram] 50 mg PO Q6H #30 tablet MDD 4 04/24/17 Acetaminophen/Caffeine/Butalb [Fioricet -] 1 tab PO Q6H PRN #12 tablet MDD 4 tab 05/27/17 Docusate Sodium [Colace -] 100 mg PO Q8H PRN #90 capsule 05/27/17 traMADol HCL [Ultram] 50 mg PO Q6H PRN #12 tablet MDD 200mg 05/27/17
== END 2017-05-27 09:23 | disposition home health service (06) | DRG 30 ==
LOC: JER 01:24 → JERBED 05:03 → INTOOBSV 05:03 → JERBED 06:25 → UNDOADMIN 06:25 → OBSVTOIN 15:24 → J8W 18:09
PROVIDERS: ADMIT Internal Medicine; ATTEND Registered Nurse
PROC: 0JX70ZC Transfer Back Subcutaneous Tissue and Fascia with Skin, Subcutaneous Tissue and Fascia, Open Approach (ICD-10-PCS; 2017-05-23)
PROC: 0JB70ZZ Excision of Back Subcutaneous Tissue and Fascia, Open Approach (ICD-10-PCS; 2017-05-23)
PROC: 00UT0JZ Supplement Spinal Meninges with Synthetic Substitute, Open Approach (ICD-10-PCS; principal; 2017-05-23 13:00)
DX: G97.82 Other postprocedural complications and disorders of nervous system (principal); G96.19 Other disorders of meninges, not elsewhere classified; Y83.8 Other surgical procedures as the cause of abnormal reaction of the patient, or of later complication, without mention of misadventure at the time of the procedure; G47.30 Sleep apnea, unspecified; R42 Dizziness and giddiness
CPT/HCPCS: 36415; 70450-TC; 72132-TC; 72148-TC; 80048; 80053; 81003; 81015; 84703; 85025; 85610; 85651; 86140; 87040; 93005; 93010; 94760; 97116-GP; 97161-GP; 99285-25; G0378; J0131; J1644; J7030

== ENCOUNTER 2021-12-01 00:12 | Emergency (ER) | payer BC ==
[2021-12-01] MEDS ORDERED: KETOROLAC TROMETHAMINE 30 MG/1 ML VIAL IM ONE (00:24)
[2021-12-01 00:25] VITALS: BP 114/76; PULSE 93; RESP 17; TEMP 97.7; BMI 36.6
[2021-12-01] MEDS ORDERED: KETOROLAC TROMETHAMINE 30 MG/1 ML VIAL ONE (00:25)
== END 2021-12-01 00:37 | disposition home or self-care (01) ==
LOC: FER 00:12
PROC: 3E0233Z Introduction of Anti-inflammatory into Muscle, Percutaneous Approach (ICD-10-PCS; principal; 2021-12-01)
DX: M25.512 Pain in left shoulder (principal)
CPT/HCPCS: 99284-25